=== PATIENT | male | born 1970 | race Caucasian/White ===

== ENCOUNTER 2024-04-14 06:48 | Day surgery (SDC) | payer BC ==
[2024-04-07 16:12] VITALS: BP 180/103
[~2024-04-14] VITALS: Ht 182.9 cm; Wt 145.4 kg
[~2024-04-14 06:48] MED LIST: ADVIL200 M1 PO; MIDAZOLAM HCL 5 MG/5 ML VIAL IV PRN; NORCO 7.5-3251 EACH PO; ONDANSETRON ODT8 MG PO; PERCOCET 5-3251 EACH PO; fentaNYL citrate 100 MCG/2 ML VIAL IV PRN
[2024-04-14 06:56] VITALS: BP 153/92
[2024-04-14] MEDS ORDERED: ADVIL200 MG PO (06:59)
[2024-04-14] MEDS ORDERED: LACTATED RINGER'S 1,000 ML IV SCH (07:00)
[2024-04-14] MEDS ORDERED: LIDOCAINE HCL 1% 5 ML SDV INJ ONE (07:00)
[2024-04-14] MEDS ORDERED: IBLOOD GLUCOSE TEST STRIP 1 EA TEST VI PRN (07:00)
[2024-04-14] MEDS ORDERED: CEFAZOLIN SODIUM 3 GM/30 ML SYR IV SCH (07:00)
[2024-04-14] MEDS ORDERED: LIDOCAINE HCL 2% 5 ML SDV ONE (08:34)
[2024-04-14] MEDS ORDERED: propofoL 200 MG/20 ML VIAL ONE ×2 (08:34→09:05)
--- NOTE | 2024-04-14 09:26 | NUR ---
04/14/24 0926 Ginger Almazan 0920-PATIENT ARRIVED TO PACU ON RA 92% RR EVEN. PATIENT AWAKE DENIES PAIN OR NAUSEA. ORIENTED TO PACU LAYING LEFT LATERAL. IVF INFUSING. ENCOURAGED TO PASS GAS. SINUS RHYTHM HR 60'S. PATIENT ENCOURAGED TO USE CPAP TODAY FOR NAPPING. 0925-PATIENT AWAKE DENIES PAIN OR NAUSEA. REQUESTING WATER RA 94% RR EVEN. HOB ELEVATED.
[2024-04-14 09:51] VITALS: BP 163/96
--- NOTE | 2024-04-14 10:48 | OR ---
[facility] [address], [place] [address] Signed DATE OF OPERATION: 04/14/2024 SURGEON: Danielle Larios MD PREOPERATIVE DIAGNOSIS: Screening. POSTOPERATIVE DIAGNOSES: 1. 7 mm sessile polyp at 80 cm. 2. 5 mm sessile polyp at 30 cm (sigmoid colon). 3. Minimal internal hemorrhoids. PROCEDURE: Colonoscopy with hot biopsy. ESTIMATED BLOOD LOSS: None. INDICATIONS: Ta is a 54-year-old obese gentleman, asked to see me for his initial screening colonoscopy. He has no lower GI complaints. There is no family history of colon cancer or polyps. In the office, I gave him a pamphlet on colonoscopy. We reviewed the nature of the test. There is risk including, but not limited to gas bloating, crampy abdominal pain, bleeding, perforation requiring surgery, and missed diagnosis. We also reviewed the written instructions for the bowel prep line by line. Also, he is a very large man with significant sleep apnea and therefore required monitored anesthesia care with propofol infusion today. In fact, we took his CPAP mask off at the end of the case and he immediately desaturated. He had expressed understanding and wished to proceed. DESCRIPTION OF PROCEDURE: Ta was taken into our endoscopy suite and placed in the left lateral decubitus position. His CPAP mask was utilized for the case. He was given monitored anesthesia care with propofol infusion per our nurse information services vice president. A digital rectal exam was performed and he had no external hemorrhoids. He had good sphincter tone. There are no masses. He is a large man, I could just reach the base of the prostate. It is fairly indurated and the right is certainly more prominent than the left. After this, the adult colonoscope was introduced and advanced all around into the cecum under direct visualization of the camera. We needed some abdominal compression to get into the cecum itself. His prep was good. We could see the appendiceal orifice and the ileocecal valve. The scope was then slowly withdrawn. We took several pictures throughout for Electronically Signed By: DANIELLE LARIOS MD 04/14/24 1048 PATIENT NAME: TA TEAGUE OPERATIVE REPORT DATE OF : 74 REPORT #: [id number] PHYSICIAN: DANIELLE LARIOS MD PCP: AMBAR CANO MD REPORT IS CONFIDENTIAL AND NOT TO BE RELEASED WITHOUT AUTHORIZATION [facility] [address], [place] [address] Signed photodocumentation. The two polyps mentioned above were removed with the help of hot biopsy forceps. The polyp at 80 cm may actually be farther up in the colon than recorded. There was no diverticulosis. The rectum was unremarkable. Upon retroflexion of the scope, he has small internal hemorrhoid columns. After this, the gas was suctioned out and the colonoscope removed. Overall, Ta tolerated the procedure quite well. RECOMMENDATIONS: I will see Ta back in my office in 7 to 14 days to review his results. Danielle Larios MD ALB/MODL /[id number] cc: MD Danielle Galindo MD Copies: AMBAR CANO DMD, ANDREW L MD ~ Electronically Signed By: DANEILLE LARIOS MD 04/14/24 1048 PATIENT NAME: TA TEAGUE OPERATIVE REPORT DATE OF : 74 REPORT #: [id number] PHYSICIAN: DANIELLE LARIOS MD PCP: AMBAR CANO MD REPORT IS CONFIDENTIAL AND NOT TO BE RELEASED WITHOUT AUTHORIZATION
--- NOTE | 2024-04-19 11:22 | PATH ---
[facility] [address] [place], [place] [address] Signed SPECIMEN(S): A DESCENDING/LEFT COLON POLYP AT 80 CM SPECIMEN(S): B SIGMOID POLYP AT 30 CM SPECIMEN SOURCE: A. DESCENDING/LEFT COLON POLYP AT 80 CM B. SIGMOID POLYP AT 30 CM CLINICAL HISTORY: Screening FINAL PATHOLOGIC DIAGNOSIS: A. Descending/left colon polyp at 80 cm: - Hyperplastic polyp, negative for dysplasia . B. Sigmoid polyp at 30 cm: - Hyperplastic polyp, negative for dysplasia. NA MICROSCOPIC EXAMINATION: Histologic sections of all submitted blocks are examined by light microscopy. These findings, together with the gross examination, support the pathologic diagnosis. GROSS DESCRIPTION: A. The specimen, labeled and designated "Shumacher, descending/left colon polyp at 80 cm," is received in formalin and consists of three ambrose soft tissue fragments, ranging from 0.2-0.3 cm. Entirely submitted in (A1). B. The specimen, labeled and designated "Shumacher, sigmoid polyp at 30 cm," is received in formalin and consists of one ambrose soft tissue fragment, 0.2 cm. Entirely submitted in (B1). VB (under the direct supervision of a pathologist) The Gross Description was prepared using a voice recognition system. The report was reviewed for accuracy; however, sound-alike word errors, addition and/or deletions may occur. If there is any question about this report, please contact Client Services. ADDITIONAL NOTES: Immunohistochemical and/or in situ hybridization studies if performed in this case included appropriate positive controls that reacted as expected. This test was developed and its performance characteristics determined by [facility] It has not been cleared or PATIENT NAME: FAINA TEAGUE PATHOLOGY DATE OF : 74 REPORT #: [id number] PHYSICIAN: HARRIS REYES PCP: AMBAR CANO MD REPORT IS CONFIDENTIAL AND NOT TO BE RELEASED WITHOUT AUTHORIZATION [facility] [address] [place] [id number] Signed approved by the U.S. Food and Drug Administration. The FDA has determined that such clearance or approval is not necessary. This test is used for clinical purposes. It should not be regarded as investigational or for research. [facility] [employer] is certified under the Clinical Laboratory Improvement Amendments of 1988 (CLIA) as qualified to perform high complexity clinical laboratory testing. PERFORMING LABORATORY: Technical component was performed by [facility] [employer] [employer] [address] [place] [address] (CLIA# [id number]). Professional interpretation was performed by [facility], [address] [place] [address] (CLIA#: [id number]). Diagnostician: Onur Mauricio MD Pathologist Electronically Signed 04/19/2024 Copies: ~ PATIENT NAME: FAINA TEAGUE PATHOLOGY DATE OF : 74 REPORT #: [id number] PHYSICIAN: HARRIS PATHOLOGY PCP: AMBAR CANO MD REPORT IS CONFIDENTIAL AND NOT TO BE RELEASED WITHOUT AUTHORIZATION
== END 2024-04-14 10:00 | disposition home or self-care (01) ==
LOC: DS 06:48
PROVIDERS: ATTEND Colon & Rectal Surgery
PROC: 0DDE8ZX Extraction of Large Intestine, Via Natural or Artificial Opening Endoscopic, Diagnostic (ICD-10-PCS; 2024-04-14)
PROC: 0DBE8ZX Excision of Large Intestine, Via Natural or Artificial Opening Endoscopic, Diagnostic (ICD-10-PCS; principal; 2024-04-14 08:15)
DX: Z12.11 Encounter for screening for malignant neoplasm of colon (principal); K63.5 Polyp of colon; K64.8 Other hemorrhoids; E78.2 Mixed hyperlipidemia; G47.33 Obstructive sleep apnea (adult) (pediatric); E66.9 Obesity, unspecified; Z68.44 Body mass index [BMI] 60.0-69.9, adult; Z79.899 Other long term (current) drug therapy
CPT/HCPCS: 00812; J0690; J2001; J2704; J7121

== ENCOUNTER 2025-03-08 05:50 | Day surgery (SDC) | payer BC ==
[2025-03-02 14:29] VITALS: BP 130/90
[~2025-03-08] VITALS: Ht 182.9 cm; Wt 141.0 kg
[~2025-03-08 05:50] MED LIST changes: +ADVIL200 MG PO; +LACTATED RINGER'S 1,000 ML IV SCH; +LOSARTAN POTASS50 MG PO; -MIDAZOLAM HCL 5 MG/5 ML VIAL IV PRN; -fentaNYL citrate 100 MCG/2 ML VIAL IV PRN
[2025-03-08 06:05] VITALS: BP 126/74
[2025-03-08] MEDS ORDERED: IBLOOD GLUCOSE TEST STRIP 1 EA TEST VI PRN ×2 (07:00→07:15)
[2025-03-08] MEDS ORDERED: LIDOCAINE HCL 1% 5 ML SDV INJ ONE (07:00)
[2025-03-08] MEDS ORDERED: CEFAZOLIN SODIUM 2 GM/20 ML SYR IV SCH (07:00)
[2025-03-08] MEDS ORDERED: CEFAZOLIN SODIUM 3 GM/30 ML SYR IV SCH (07:00)
[2025-03-08] MEDS ORDERED: HEParin SOD (PORCINE) 5,000 UNIT/ML SDV SUB-Q SCH (07:00)
[2025-03-08] MEDS ORDERED: LIDOCAINE HCL 2% 5 ML SDV ONE (07:03)
[2025-03-08] MEDS ORDERED: KETOROLAC TROMETHAMINE 30 MG/ML VIAL ONE (07:03)
[2025-03-08] MEDS ORDERED: propofoL 200 MG/20 ML VIAL ONE (07:03)
[2025-03-08] MEDS ORDERED: fentaNYL citrate 100 MCG/2 ML VIAL ONE ×2 (07:03→08:43)
[2025-03-08] MEDS ORDERED: MIDAZOLAM HCL 2 MG/2 ML VIAL ONE (07:03)
[2025-03-08] MEDS ORDERED: ondansetron HCL 4 MG/2 ML VIAL ONE (07:03)
[2025-03-08] MEDS ORDERED: ROCURONIUM BROMIDE 50 MG/5 ML SYR ONE ×2 (07:03→08:18)
[2025-03-08] MEDS ORDERED: DEXAMETHASONE SOD PHOS 4 MG/ML VIAL ONE (07:03)
[2025-03-08] MEDS ORDERED: SUGAMMADEX SODIUM 200 MG/2 ML ML ONE (07:03)
[2025-03-08] MEDS ORDERED: ACETAMINOPHEN 1,000 MG/100 ML VIAL ONE (07:08)
[2025-03-08] MEDS ORDERED: SEVOFLURANE 250 ML BTL ONE (07:08)
[2025-03-08] MEDS ORDERED: ondansetron HCL 4 MG/2 ML VIAL IV PRN (07:15)
[2025-03-08] MEDS ORDERED: fentaNYL citrate 50 MCG/ML SDV IV PRN (07:15)
[2025-03-08] MEDS ORDERED: HYDROmorphone HCL 1 MG/ML SYR IV PRN (07:15)
[2025-03-08] MEDS ORDERED: NALOXONE HCL 0.4 MG SYR IV PRN (07:15)
--- NOTE | 2025-03-08 07:32 | NUR ---
PT NOT AVAILABLE FOR VISIT. PROVIDED PRAYER.
[2025-03-08] MEDS ORDERED: LACTATED RINGER'S 1,000 ML IV ONE (08:26)
--- NOTE | 2025-03-08 10:11 | NUR ---
03/08/25 1011 Ginger Almazan 0959-PATIENT ARRIVED TO PACU ON 6L MASK NONAROUSABLE ORAL AIRWAY IN PLACE RN DOING JAW THRUST TO MAINTAIN OPEN AIRWAY. O2 SAT 88% ON 6L MASK. SR HR 80'S ABDOMINAL BINDER IN PLACE DRESSING INTACT JASPAL IN PLACE. IVF INFUSING. 1001-RN DOING JAW THRUST PATIENT'S O2 INCREASING TO MID 90'S. ORAL AIRWAY IN PLACE NONAROUSABLE 1005-PATIENTS HOB ELEVATED MOANS NOT FOLLOWING COMMANDS ORAL AIRWAY IN PLACE AND MAINTAING AIRWAY 96% RR EVEN. 1009-PATIENT AROUSING OPENING EYES REACTIVE TO VERBAL STIMULI LIFTING HANDS TO MOUTH ORAL AIRWAY REMOVED. ORIENTED TO PACU. PATIENT LIFTING ARMS ABOVE HEAD. 6L MASK RR EVEN 96% PATIENT DOZES BACK TO SLEEP.
[2025-03-08] MEDS ORDERED: OXYCODONE/APAP 5/325 TAB PO PRN (10:30)
[2025-03-08 10:51] VITALS: BP 145/83
--- NOTE | 2025-03-08 10:55 | NUR ---
PT ARRIVES TO DS FROM PACU VIA STRETCHER. PT REPORTS PAIN TOLERABLE 3/10 AT THIS TIME. DRESSING VISUALIZED UNDER ABDOMINAL BINDER W/FLORA SKINNER, C/D/I, NO SIGNS OF BLEEDING. JASPAL DRAIN IS TO SUCTION. PT TOLERATING ICE WATER WITHOUT DIFFICULTY SWALLOWING OR ONSET OF NAUSEA. REPORT RECEIVED FROM FLORA SKINNER W/PT AT BEDSIDE. CALL LIGHT WITHIN REACH. PUDDING/CRACKERS PROVIDED. PT STATES NO FURTHER NEEDS OR QUESTIONS AT THIS TIME.
--- NOTE | 2025-03-08 11:40 | NUR ---
THIS RN ANSWERS CALL LIGHT D/T PT REPORT OF NEED TO URINE VOID. PT SITS AT BEDSIDE AND REPORTS MINOR DIZZINESS, BUT SUBSIDES. PT STANDS IN PLACE AND STATES NO NAUSEA/DIZZINESS. PT TO RESTROOM W/THIS RN STANDBY ASSIST. PT GAIT IS STEADY AND URINE VOID OF 300 ML OF DARK YELLOW/CLEAR URINE. PT BACK TO ROOM AND GETTING DRESSED AT THIS TIME. CALL LIGHT WITHIN REACH. PT IN ROOM TO ASSIST. PT STATES VERBAL UNDERSTANDING TO EDUCATION FOR LIMITED BENDING D/T INCREASE IN ABDOMINAL PRESSURE.
[2025-03-08 11:55] VITALS: BP 139/79
--- NOTE | 2025-03-08 12:05 | NUR ---
THIS RN IN ROOM FOR VS AND DC IV. DEMONSTRATION PERFORMED OF JASPAL DRAIN EMPTYING AND RE-SETTING TO SUCTION. JASPAL DRAIN SAFETY PINNED TO PT SHIRT AND COLLECTION CONTAINER/DOCUMENTATION SHEET PROVIDED. DC EDUCATION PROVIDED. PT AND PT STATE VERBAL UNDERSTANDING AND NO FURTHER QUESTIONS AT THIS TIME. PT OFF OF UNIT VIA WC TO PASSENGER SIDE OF VEHICLE. ALL BELONGINGS IN PT POSSESSION AT THIS TIME. ICE PACK PROVIDED. ABDOMINAL BINDER IN PLACE. PT STATES NO FURTHER NEEDS OR QUESTIONS AT THIS TIME.
[2025-03-08] MEDS ORDERED: SEVOFLURANE 250 ML BTL INH ONE (15:03)
--- NOTE | 2025-03-09 11:18 | OR ---
[facility] [address] [place], [place] [address] Signed DATE OF OPERATION: 03/08/2025 SURGEON: Blaze Mathews MD PREOPERATIVE DIAGNOSIS: Incarcerated umbilical ventral hernia. POSTOPERATIVE DIAGNOSIS: Incarcerated umbilical ventral hernia. PROCEDURE: Repair of incarcerated ventral umbilical hernia with mesh. ANESTHESIA: General endotracheal anesthesia. INDICATIONS: This is a 55-year-old white male who has been seen by with complaints of periumbilical pain. He was found to have an incarcerated umbilical hernia that has been bothering him for the past several years but getting worse and he presents now for semi-elective surgical repair. PROCEDURE IN DETAIL: After obtaining informed consent, the patient was taken to the operating room where he was placed in a supine position. The abdomen was then prepped and draped in a standard sterile fashion with Betadine. A longitudinal incision in the periumbilical area was carried out above and below the umbilicus. The hernia sac was thoroughly and carefully dissected all the way around fascia defect. The hernia sac was then entered and omentum was noted to be incarcerated. The omentum was then freed up from the abdominal wound nicely and put back in the abdomen. At this point, I extended the defect a little bit more so I could free up all the attachments and scar tissue in the posterior fascia. Anterior flaps were then created in order to place mesh onlay. At this point, I went ahead and closed the defect primarily with several interrupted 2-0 Ethibond sutures. The defect measured about 4 cm but extended up additional 2 cm in order to incorporate another small hernia defect. Adequate approximation was obtained. No significant tension was noted. The area was then irrigated with irrigation solution as well as with hydrogen peroxide. Polypropylene mesh was then brought to the field, it was in order to fit in the defect and it was placed in a onlay manner and it was anchored with several interrupted 2-0 Ethibond sutures. An adequate repair was obtained. The area was again irrigated with irrigation solution. The base of the umbilicus was then secured to Electronically Signed By: BLAZE MATHEWS MD 03/09/25 1118 PATIENT NAME: FAINA TEAGUE OPERATIVE REPORT DATE OF : 74 REPORT #: [id number] PHYSICIAN: BLAZE MATHEWS MD PCP: AMBAR CANO MD REPORT IS CONFIDENTIAL AND NOT TO BE RELEASED WITHOUT AUTHORIZATION [facility] [address] [place] [id number] Signed the fascia. The Blake's fascia was approximated with several interrupted 3-0 Vicryl sutures. 7 mm Deon-Webb drain was then placed in the field and brought out through the skin for additional stab wound. The drain was secured with 3-0 nylon suture. The skin was approximated with giulia. The patient tolerated very well the procedure. COMPLICATIONS: None. BLEEDING: None. FINDINGS: Incarcerated omentum with no evidence of any ischemia. MD GONZALEZ Corral/DEION /[id number] Copies: ~ Electronically Signed By: BLAZE MATHEWS MD 03/09/25 1118 PATIENT NAME: FAINA TEAGUE MINI OPERATIVE REPORT DATE OF : 74 REPORT #: [id number] PHYSICIAN: BLAZE MATHEWS MD PCP: AMBAR CANO MD REPORT IS CONFIDENTIAL AND NOT TO BE RELEASED WITHOUT AUTHORIZATION
== END 2025-03-08 12:10 | disposition home or self-care (01) ==
LOC: DS 05:50
PROVIDERS: ATTEND Transplant Surgery
PROC: 0WUF0JZ Supplement Abdominal Wall with Synthetic Substitute, Open Approach (ICD-10-PCS; principal; 2025-03-08 07:30)
DX: K42.0 Umbilical hernia with obstruction, without gangrene (principal); E78.2 Mixed hyperlipidemia; G47.33 Obstructive sleep apnea (adult) (pediatric); E66.9 Obesity, unspecified; Z68.41 Body mass index [BMI] 40.0-44.9, adult; Z79.899 Other long term (current) drug therapy
CPT/HCPCS: 00750; C1781; J0131; J0690; J1100; J1644; J1885; J2003; J2250; J2405; J2704; J3010; J3490; J7121

== ENCOUNTER 2025-03-25 09:23 | Emergency (ER) | payer BC ==
[~2025-03-25] VITALS: Ht 182.9 cm; Wt 140.0 kg
[~2025-03-25 09:23] MED LIST changes: -LACTATED RINGER'S 1,000 ML IV SCH
[2025-03-25 09:49] VITALS: BP 129/84
== END 2025-03-25 09:49 | disposition home or self-care (01) ==
LOC: ED 09:23
DX: T81.31XA Disruption of external operation (surgical) wound, not elsewhere classified, initial encounter (principal); G47.30 Sleep apnea, unspecified
CPT/HCPCS: 99283